=== PATIENT | male | born 1975 | race African-American/Black ===

== ENCOUNTER 2019-05-13 10:42 | Inpatient (IN) ==
[2019-05-13 13:13] LABS: Apearance,Urine CLOUDY (Clear); Bilirubin,Urine Negative (Negative); Blood, Urine Small mg/dL (Negative); Glucose,Urine (UA) Negative (Negative); Granular Casts,Urine 5 /LPF (0-1); Ketones,Urine 5 mg/dL (Negative); Mucus,Urine Occasional /LPF (Occasional); Nitrite,Urine Negative (Negative); Protein,Urine 30 MG/DL; RBC,Urine 11 /HPF (0-4); Sperm,Urine Occasional /HPF (Negative); Urine Color Yellow (Yellow); Urine Specific Gravity 1.026 (1.001-1.035); Urine Urobilinogen < 2.0 EU/DL (0.2-1.0); WBC,Urine 111 /HPF (0-6)
[2019-05-13 13:36] LABS: Basophils % 0.2 % (0.0-0.8); Eosinophils % 0.2 % (0.00-10.9); Hematocrit 41.4 VOL% (42.0-52.0); Hemoglobin 13.5 GM/DL (14.0-18.0); Immature Granulocytes % 0.7 %; Immature Granulocytes Absolute 0.08 #; Lymphocytes # 0.7 10*3/uL (1.4-4.0); Mean Corpuscular HGB Conc 32.6 GM/DL (32-36); Mean Corpuscular Volume 96.1 FL (87-102); Mean Platelet Volume 10.9 FL (9.6-12.0); Monocytes % 6.8 % (1.7-12.7); Neutrophils % 86.1 % (38.7-73.9); Platelet Count 165 T/CUMM (130-400); Red Blood Count 4.31 MC/CUMM (3.8-5.5); Red Cell Distribution Width 13.1 % (9.3-17.3); White Blood Count 11.5 T/CUMM (4-12)
[2019-05-13 13:56] LABS: Albumin 2.9 G/DL (3.4-5.0); Bilirubin,Total 0.4 MG/DL (0.2-1.0); Osmolality,Calculated 282.7 MOS/KG (273-304); Total Protein 7.2 G/DL (6.4-8.3)
[2019-05-13] MEDS ORDERED: SODIUM CHLORIDE 0.9% 2,000 ML IV STA (14:02)
[2019-05-13 14:09] LABS: Band Neutrophils 6 % (0-10); Lymphocytes 5 % (20-55); Segmented Neutrophils 83 % (50-85); Total Cells Counted 100
[2019-05-13 14:10] LABS: Platelet Estimate Adequate
[2019-05-13] MEDS ORDERED: cefTRIAXone 1,000 MG in SODIUM CHLORIDE 0.9% 100 ML IV STA (14:49)
[2019-05-13] MEDS ORDERED: ONDANSETRON 4 MG/2 ML VIAL IV PRN (16:22)
[2019-05-13] MEDS ORDERED: LACTULOSE 20 GM/30 ML UDCUP PO PRN (16:22)
[2019-05-13] MEDS ORDERED: METOPROLOL TARTRATE 5 MG/5 ML VIAL IV PRN (16:37)
[2019-05-13] MEDS: SODIUM CHLORIDE 0.9% 1,000 ML IV SCH (17:54)
[2019-05-13] MEDS: PIPERACILLIN/TAZOBACTAM 3,375 MG in SODIUM CHLORIDE 0.9% 100 ML IV SCH (17:55)
[2019-05-13] MEDS: ACETAMINOPHEN 325 MG TABLET PO PRN (21:03)
[2019-05-13] MEDS: ENOXAPARIN 30 MG/0.3 ML SYRINGE SUBCUT SCH (21:06)
[2019-05-14] MEDS: PIPERACILLIN/TAZOBACTAM 3,375 MG in SODIUM CHLORIDE 0.9% 100 ML IV SCH ×3 (00:58→17:33)
[2019-05-14] MEDS: ACETAMINOPHEN 325 MG TABLET PO PRN ×2 (05:17→21:48)
[2019-05-14] MEDS: SODIUM CHLORIDE 0.9% 1,000 ML IV SCH ×3 (05:19→21:52)
[2019-05-14 06:16] LABS: Calcium 8.6 MG/DL (8.5-10.1); Osmolality,Calculated 281.7 MOS/KG (273-304); Risk Ratio 4.23; Thyroid Stimulating Hormone 0.639 uIU/ml (0.358-3.74); VLDL CHOLESTEROL 25.2 MG/DL
[2019-05-14 06:19] LABS: Basophils % 0.3 % (0.0-0.8); Hematocrit 39.8 VOL% (42.0-52.0); Immature Granulocytes % 0.6 %; Immature Granulocytes Absolute 0.06 #; Lymphocytes # 0.5 10*3/uL (1.4-4.0); Lymphocytes % 4.9 % (21.2-54.2); Mean Corpuscular HGB Conc 32.7 GM/DL (32-36); Mean Corpuscular Volume 95.7 FL (87-102); Mean Platelet Volume 10.7 FL (9.6-12.0); Monocytes % 11.1 % (1.7-12.7); Neutrophils % 83.1 % (38.7-73.9); Platelet Count 181 T/CUMM (130-400); Red Blood Count 4.16 MC/CUMM (3.8-5.5); Red Cell Distribution Width 13.2 % (9.3-17.3); White Blood Count 9.3 T/CUMM (4-12)
[2019-05-14] MEDS: PANTOPRAZOLE 40 MG TABLET PO SCH (09:10)
[2019-05-14 09:34] LABS: Band Neutrophils 5 % (0-10); Lymphocytes 3 % (20-55); Platelet Estimate Normal; Polychromasia Slight; Segmented Neutrophils 88 % (50-85); Total Cells Counted 100
[2019-05-14] MEDS ORDERED: TAMSULOSIN 0.4 MG CAPSULE PO SCH (10:30)
[2019-05-14] MEDS: ENOXAPARIN 30 MG/0.3 ML SYRINGE SUBCUT SCH (21:52)
[2019-05-15] MEDS: PIPERACILLIN/TAZOBACTAM 3,375 MG in SODIUM CHLORIDE 0.9% 100 ML IV SCH ×2 (01:11→08:26)
[2019-05-15 05:37] LABS: Basophils % 0.7 % (0.0-0.8); Eosinophils % 0.5 % (0.00-10.9); Hematocrit 37.6 VOL% (42.0-52.0); Hemoglobin 12.3 GM/DL (14.0-18.0); Immature Granulocytes % 0.3 %; Immature Granulocytes Absolute 0.02 #; Lymphocytes # 1.1 10*3/uL (1.4-4.0); Lymphocytes % 18.9 % (21.2-54.2); Mean Corpuscular HGB Conc 32.7 GM/DL (32-36); Mean Corpuscular Volume 94.9 FL (87-102); Mean Platelet Volume 10.6 FL (9.6-12.0); Monocytes % 19.8 % (1.7-12.7); Neutrophils % 59.8 % (38.7-73.9); Platelet Count 179 T/CUMM (130-400); Red Blood Count 3.96 MC/CUMM (3.8-5.5); Red Cell Distribution Width 13.4 % (9.3-17.3); White Blood Count 5.8 T/CUMM (4-12)
[2019-05-15] MEDS: SODIUM CHLORIDE 0.9% 1,000 ML IV SCH (06:02)
[2019-05-15 06:03] LABS: Eosinophils 1 % (0-10); Hypochromasia 1+; Lymphocytes 21 % (20-55); Platelet Estimate Adequate; Segmented Neutrophils 60 % (50-85); Total Cells Counted 100
[2019-05-15 06:11] LABS: Calcium 8.3 MG/DL (8.5-10.1); Osmolality,Calculated 282.4 MOS/KG (273-304)
[2019-05-15] MEDS: PANTOPRAZOLE 40 MG TABLET PO SCH (08:27)
[2019-05-15] MEDS: ACETAMINOPHEN 325 MG TABLET PO PRN (08:27)
[2019-05-15] MEDS: ENOXAPARIN 40 MG/0.4 ML SYRINGE SUBCUT SCH ×2 (08:27→08:31)
[2019-05-15 13:49] VITALS: BP 137/94
== END 2019-05-15 13:58 | disposition home or self-care (01) | DRG 728 ==
LOC: N.ED 10:42 → N.EDINP 16:22 → SUATTDRO 16:22 → N.2E 17:37
PROVIDERS: ADMIT Internal Medicine; ATTEND Internal Medicine